=== PATIENT | female | born 1955 | race Caucasian/White ===

== ENCOUNTER 2024-10-05 06:40 | Day surgery (SDC) | payer OTHER ==
[2024-10-04 11:15] VITALS: BMI 24.0
[2024-10-05 11:05] VITALS: BP 129/69; PULSE 58; RESP 19; TEMP 98.1
== END 2024-10-05 11:10 | disposition home or self-care (01) ==
LOC: JASU-ENDO 06:40
PROVIDERS: ATTEND Internal Medicine Gastroenterology
PROC: 0DJD8ZZ Inspection of Lower Intestinal Tract, Via Natural or Artificial Opening Endoscopic (ICD-10-PCS; principal; 2024-10-05 09:30)
DX: Z12.11 Encounter for screening for malignant neoplasm of colon (principal); Z86.0100 Personal history of colon polyps, unspecified